=== PATIENT | female | born 1970 | race Caucasian/White ===

== ENCOUNTER 2019-02-14 23:12 | Emergency (ER) | payer MEDICAID ==
[~2019-02-14] VITALS: Ht 177.8 cm; Wt 70.1 kg
[2019-02-14] MEDS ORDERED: LIDOCAINE-MPF 1%, 5ML ONE (23:49)
[2019-02-15] MEDS ORDERED: LIDOCAINE-MPF 1%, 5ML INFIL ONE
[2019-02-15 00:38] VITALS: BP 124/65
[2019-02-17] MEDS ORDERED: SULF1TAB24 PO (10:55)
[2019-02-17] MEDS ORDERED: CEPH-368 PO (10:55)
== END 2019-02-15 00:40 | disposition home or self-care (01) ==
LOC: ED 02-15
DX: L03.114 Cellulitis of left upper limb (principal); F15.10 Other stimulant abuse, uncomplicated; Z72.9 Problem related to lifestyle, unspecified
CPT/HCPCS: 10060; 99283

== ENCOUNTER 2019-07-26 16:23 | Emergency (ER) | payer MEDICAID ==
[~2019-07-26] VITALS: Ht 177.8 cm; Wt 75.2 kg
[~2019-07-26 16:23] MED LIST: CEPH-368 PO; SULF1TAB24 PO
[2019-07-26 16:24] VITALS: BP 168/60
--- NOTE | 2019-07-26 16:51 | NUR ---
PT HERE WITH C/O COUGH/COLD X 5 WEEKS, PT STATES SEASONAL ALLERGIES. PT STATES GREEN SPUTUM AT TIMES.
--- NOTE | 2019-07-26 16:59 | NUR ---
ALL RESULTS BACK AT THIS TIME, CHART UP FOR RECHECK.
--- NOTE | 2019-07-26 17:12 | NUR ---
Patient/Caregiver given discharge instructions and they have confirmed that they understand the instructions. Patient ambulatory with steady gait.
== END 2019-07-26 17:23 | disposition home or self-care (01) ==
LOC: ED 17:15
DX: J20.9 Acute bronchitis, unspecified (principal); J00 Acute nasopharyngitis [common cold]; R07.9 Chest pain, unspecified; F17.200 Nicotine dependence, unspecified, uncomplicated
CPT/HCPCS: 71046; 99283